=== PATIENT | female | born 1980 | race Caucasian/White ===

== ENCOUNTER 2017-01-07 12:54 | Emergency (ER) | payer OTHER ==
[~2017-01-07] VITALS: Ht 167.6 cm; Wt 67.1 kg
[2017-01-07 15:08] LABS: ABSOLUTE NEUTROPHILS 7.7 thou/uL (1.4-8.2); BASOPHILS 0.4 % (0.0-2.0); EOSINOPHILS 0.6 % (0.0-3.0); HEMATOCRIT 35.6 % (37.0-47.0); HEMOGLOBIN 12.2 gm/dL (12.0-15.0); MCH 31.2 pg (26.0-34.0); MCHC 34.1 g/dL (28.0-37.0); MCV 91.5 fL (80.0-100.0); MONOCYTES 6.7 % (1.0-8.0); PLATELET COUNT 212 thou/uL (150-400); POLYS 75.3 % (36.0-66.0); RBC 3.89 mil/uL (4.20-5.00); RDW 14.2 % (10.5-14.5); WBC 10.2 thou/uL (4.0-11.0)
[2017-01-07 15:09] LABS: MANUAL DIFF NO
[2017-01-07] MEDS ORDERED: TIZANIDINE HCL4 MG PO ×2 (15:34→15:38)
[2017-01-07] MEDS ORDERED: IBUPROFEN 600600 M1 PO ×2 (15:34→15:38)
[2017-01-07 15:50] VITALS: BP 158/101
== END 2017-01-07 18:10 | disposition home or self-care (01) ==
LOC: ER 12:54
PROVIDERS: Nurse Practitioner
DX: S16.1XXA Strain of muscle, fascia and tendon at neck level, initial encounter (principal); S06.0X1A Concussion with loss of consciousness of 30 minutes or less, initial encounter; S00.93XA Contusion of unspecified part of head, initial encounter; F10.99 Alcohol use, unspecified with unspecified alcohol-induced disorder; F17.210 Nicotine dependence, cigarettes, uncomplicated; Z88.1 Allergy status to other antibiotic agents; V43.52XA Car driver injured in collision with other type car in traffic accident, initial encounter; Y93.I9 Activity, other involving external motion; Y92.415 Exit ramp or entrance ramp of street or highway as the place of occurrence of the external cause; Y99.8 Other external cause status

== ENCOUNTER 2019-04-07 14:13 | Emergency (ER) | payer BC, OTHER ==
[~2019-04-07] VITALS: Ht 167.6 cm; Wt 68.0 kg
[~2019-04-07 14:13] MED LIST: IBUPROFEN 600600 M1 PO; TIZANIDINE HCL4 MG PO
[2019-04-07 14:25] VITALS: BP 144/98
[2019-04-07] MEDS ORDERED: ACID CONTROLLER20 MG PO (14:58)
[2019-04-07] MEDS ORDERED: PREDNISONE 10 M10 MG PO (14:58)
== END 2019-04-07 15:30 | disposition home or self-care (01) ==
LOC: ER 14:13
DX: L29.9 Pruritus, unspecified (principal); F17.210 Nicotine dependence, cigarettes, uncomplicated; Z98.890 Other specified postprocedural states; Z88.1 Allergy status to other antibiotic agents